=== PATIENT | female | born 1930 | race Caucasian/White ===

== ENCOUNTER → 2017-01-04 | Outpatient (CLI) | payer MEDICARE, BC ==
--- NOTE | 2017-01-04 14:30 | XR ---
EXAMINATION TYPE: XR chest 2V DATE OF EXAM: 01/04/2017 COMPARISON: 05/18/2015 TECHNIQUE: PA and lateral views submitted. HISTORY: Shortness of breath FINDINGS: There is right lower lobe infiltrate with pleural effusion and pleural-based calcification. Left lung clear. Biapical pleural thickening. Atherosclerotic change aorta. No overt failure. Underlying COPD suspected. Curvature of the spine with degenerative disc disease noted. IMPRESSION: 1. Right-sided pleural effusion and consolidation with pleural-based calcification correlate for asbe stosis related disease. There is mild increased blunting of the right costophrenic angle relative to the prior exam. 2. No evidence of overt cardiac failure. 3. COPD.
== END | disposition home or self-care (01) ==
LOC: RADXRMAIN 14:06
PROVIDERS: ATTEND Internal Medicine
DX: J90 Pleural effusion, not elsewhere classified (principal); J44.9 Chronic obstructive pulmonary disease, unspecified; J98.4 Other disorders of lung
CPT/HCPCS: 71020

== ENCOUNTER → 2017-01-20 | Outpatient (CLI) | payer MEDICARE, BC ==
--- NOTE | 2017-01-20 16:14 | CT ---
EXAMINATION TYPE: CT chest wo con DATE OF EXAM: 01/20/2017 COMPARISON: Radiograph 01/04/2017 HISTORY: 86-year-old female with abnormal chest x-ray, Shortness of breath and weight loss. TECHNIQUE: Contiguous axial scanning of the chest without IV contrast. Coronal and sagittal reconstru ctions performed. CT DLP: 118.80 mGycm Automated exposure control for dose reduction was used. FINDINGS: The heart is normal size with trace anterior pericardial fluid/thickening. Extensive coronary vessel calcifications are present in remarkable for coronary artery disease. Mild atherosclerotic calcifications throughout the aorta. Normal caliber of the aorta with convention al arch vessel branching anatomy. Large caliber to the main right and left pulmonary arteries are 2.6 and 2.7 cm, respectively, suggest ing underlying pulmonary artery hypertension. No thoracic lymphadenopathy seen. There is dense calcified plaque along the right hemidiaphragm with a band of atelectasis/scarring at the posterior left base and additional pleural patchy pleural-parenchymal scarring at the right base. Ectasia of the lower descending thoracic aorta are 2.7 cm. No suspicious pulmonary nodule or mass is identified. Moderate-sized hiatal hernia. A number of lesions within the kidneys. These are indeterminate. Some are hypodense. Dominant lesion lateral midpole show soft tissue attenuation and could represent a solid mass or hemorrhagic cyst lupe suring 2.3 cm. At least 4 calcifications in the right kidney which are nonobstructive and 2 on the left. At least moderate stool burden within the visualized colon. Ectasia of the upper abdominal aorta at 2 .6 cm. Bones: No osseous destructive process. IMPRESSION: 1. DENSE CALCIFICATION ALONG THE RIGHT HEMIDIAPHRAGM. THIS COULD BE ON A POST INFLAMMATORY BASIS SUCH IN THE SETTING OF PRIOR EMPYEMA OR HEMOTHORAX. PRIOR ASBESTOS EXPOSURE IS ALSO A CONSIDERATION TH OUGH ADDITIONAL PLEURAL PLAQUES ARE NOT SEEN. CORRELATE WITH PATIENT'S EXPOSURE HISTORY. 2. VOLUME LOSS WITH PATCHY PLEURAL PARENCHYMAL SCARRING AT THE RIGHT GREATER THAN LEFT LUNG BASES. 3. CAD AND PULMONARY ARTERIAL HYPERTENSION. 4. A NUMBER OF RENAL LESIONS WHICH ARE INDETERMINATE. ONE COULD BE A 2.3 CM SOLID MASS OR HEMORRHAGIC CYST. RENAL MRI COULD PROVIDE MORE BETTER CHARACTERIZATION. 5. MODERATE-SIZED HIATAL HERNIA AND BILATERAL NEPHROLITHIASIS.
== END | disposition home or self-care (01) ==
LOC: RADCTMAIN 15:35
PROVIDERS: ATTEND Internal Medicine
DX: J98.4 Other disorders of lung (principal); J91.8 Pleural effusion in other conditions classified elsewhere; I25.10 Atherosclerotic heart disease of native coronary artery without angina pectoris; R63.4 Abnormal weight loss; I27.20 Pulmonary hypertension, unspecified
CPT/HCPCS: 71250

== ENCOUNTER 2017-10-14 11:32 | Emergency (ER) | payer MEDICARE, BC ==
[2017-10-14] MEDS ORDERED: SODIUM CHLORIDE 0.9% 500 ML IV STA (11:39)
--- NOTE | 2017-10-14 11:42 | ED ---
Syncope HPI - General Stated Complaint: near syncope Time Seen by Provider: 10/14/17 11:32 Source: patient, EMS, RN notes reviewed Mode of arrival: EMS - History of Present Illness Initial Comments: This 87-year-old female who was in a service and transferred for a prolonged period of time where was very warm who states she was sitting and almost passed out. She apparently became very weak is noted be hypotensive per EMS with 86/40's blood pressure she did improve somewhat after IV fluids and oxygen. She did later become lethargic did have a sternal rub which woke her up. She now feels much improved she has no headache no focal weakness she does admit she did not eat breakfast this morning but did have a couple coffee. She currently complains of no headache or vision focal weakness fevers chills nausea vomiting sweats or other symptoms. Her Accu-Chek was adequate per EMS. MD Complaint: almost passed out - Related Data Home Medications Medication Instructions Recorded Confirmed Benazepril [Lotensin] 10 mg PO DAILY 08/06/14 10/14/17 Metoprolol Tartrate [Lopressor] 25 mg PO BID 08/06/14 10/14/17 Simvastatin [Zocor] 20 mg PO HS 08/06/14 10/14/17 Ferrous Sulfate [Iron (65 MG 325 mg PO DAILY 03/20/17 10/14/17 Elemental)] Gabapentin [Neurontin] 300 mg PO HS 10/14/17 10/14/17 Previous Rx's Medication Instructions Recorded Nitrofurantoin Monohyd/M-Cryst 100 mg PO Q12HR #14 cap 10/14/17 [Macrobid] Allergies Allergy/AdvReac Type Severity Reaction Status Date / Time No Known Allergies Allergy Verified 10/14/17 12:17 Review of Systems ROS Statement: Those systems with pertinent positive or pertinent negative responses have been documented in the HPI. ROS Other: All systems not noted in ROS Statement are negative. Past Medical History Past Medical History: COPD, Hyperlipidemia, Hypertension Additional Past Medical History / Comment(s): anemia, pulmonary HTN. History of Any Multi-Drug Resistant Organisms: None Reported Past Surgical History: No Surgical Hx Reported Additional Past Surgical History / Comment(s): right eye surgery r/t retina tear. Past Psychological History: No Psychological Hx Reported Smoking Status: Never smoker Past Alcohol Use History: None Reported Past Drug Use History: None Reported - Past Family History Father History Unknown: Yes Additional Family Medical History / Comment(s): patient thinks her father had a heart condition, doesnt know what. Mother Family Medical History: Hypertension Additional Family Medical History / Comment(s): patient thinks her mother may have had HTN. General Exam - General Exam Comments Initial Comments: This is a well developed well-nourished awake alert oriented 3 female General appearance: alert, in no apparent distress Head exam: Present: atraumatic, normocephalic, normal inspection Eye exam: Present: normal appearance, PERRL, EOMI. Absent: scleral icterus, conjunctival injection, periorbital swelling ENT exam: Present: mucous membranes dry Neck exam: Present: normal inspection. Absent: tenderness, meningismus, lymphadenopathy Respiratory exam: Present: normal lung sounds bilaterally. Absent: respiratory distress, wheezes, rales, rhonchi, stridor Cardiovascular Exam: Present: regular rate, normal rhythm, normal heart sounds. Absent: systolic murmur, diastolic murmur, rubs, gallop, clicks GI/Abdominal exam: Present: soft, normal bowel sounds. Absent: distended, tenderness, guarding, rebound, rigid Extremities exam: Present: normal inspection, full ROM, normal capillary refill. Absent: tenderness, pedal edema, joint swelling, calf tenderness Back exam: Present: normal inspection Neurological exam: Present: alert, oriented X3, CN II-XII intact Psychiatric exam: Present: normal affect, normal mood Skin exam: Present: warm, dry, intact, normal color. Absent: rash Course Vital Signs 10/14/17 10/14/17 10/14/17 11:43 11:52 14:02 Temperature 98.2 F Pulse Rate 77 80 Respiratory 16 16 Rate Blood Pressure 150/84 104/58 O2 Sat by Pulse 96 Oximetry EKG Findings - EKG Results: EKG: interpreted by ERMSarai, sinus rhythm (Sinus rhythm rate is 71. Interval 164 QRS 90 QT since QTC 392/425 voltage criteria for LVH no acute ST-T wave changes. ) Medical Decision Making - Medical Decision Making The patient showing much improved at this time I did discuss the findings with her and her family members she does have some evidence of UTI. Patient be placed on antibiotics she'll be discharged she is follow-up with her doctor return when necessary - Lab Data Result diagrams: 10/14/17 12:00 10/14/17 12:00 Lab Results 10/14/17 10/14/17 10/14/17 Range/Units 12:00 12:00 12:00 WBC 9.1 (3.8-10.6) k/uL RBC 2.72 L (3.80-5.40) m/uL Hgb 8.4 L (11.4-16.0) gm/dL Hct 25.9 L (34.0-46.0) % MCV 95.3 (80.0-100.0) fL MCH 31.1 (25.0-35.0) pg MCHC 32.6 (31.0-37.0) g/dL RDW 14.3 (11.5-15.5) % Plt Count 312 (150-450) k/uL Neutrophils % 81 % Lymphocytes % 10 % Monocytes % 6 % Eosinophils % 1 % Basophils % 0 % Neutrophils # 7.3 (1.3-7.7) k/uL Lymphocytes # 0.9 L (1.0-4.8) k/uL Monocytes # 0.6 (0-1.0) k/uL Eosinophils # 0.1 (0-0.7) k/uL Basophils # 0.0 (0-0.2) k/uL Sodium 139 (137-145) mmol/L Potassium 4.4 (3.5-5.1) mmol/L Chloride 110 H (98-107) mmol/L Carbon Dioxide 20 L (22-30) mmol/L Anion Gap 9 mmol/L BUN 38 H (7-17) mg/dL Creatinine 1.80 H (0.52-1.04) mg/dL Est GFR (CKD-EPI)AfAm 28 (>60 ml/min/1.73 sqM) Est GFR (CKD-EPI)NonAf 25 (>60 ml/min/1.73 sqM) Glucose 87 (74-99) mg/dL Calcium 9.1 (8.4-10.2) mg/dL Magnesium 2.3 (1.6-2.3) mg/dL Total Bilirubin 0.3 (0.2-1.3) mg/dL AST 15 (14-36) U/L ALT 24 (9-52) U/L Alkaline Phosphatase 68 (38-126) U/L Total Creatine Kinase 46 (30-135) U/L CK-MB (CK-2) <0.2 (0.0-2.4) ng/mL CK-MB (CK-2) Rel Index Troponin I <0.012 (0.000-0.034) ng/mL Total Protein 5.6 L (6.3-8.2) g/dL Albumin 3.3 L (3.5-5.0) g/dL Urine Color Urine Appearance (Clear) Urine pH (5.0-8.0) Ur Specific Clint (1.001-1.035) Urine Protein (Negative) Urine Glucose (UA) (Negative) Urine Ketones (Negative) Urine Blood (Negative) Urine Nitrite (Negative) Urine Bilirubin (Negative) Urine Urobilinogen (<2.0) mg/dL Ur Leukocyte Esterase (Negative) Urine RBC (0-5) /hpf Urine WBC (0-5) /hpf Ur Squamous Epith Cells (0-4) /hpf Urine Bacteria (None) /hpf Hyaline Casts (0-2) /lpf Urine Mucus (None) /hpf / Range/Units Unknown WBC (3.8-10.6) k/uL RBC (3.80-5.40) m/uL Hgb (11.4-16.0) gm/dL Hct (34.0-46.0) % MCV (80.0-100.0) fL MCH (25.0-35.0) pg MCHC (31.0-37.0) g/dL RDW (11.5-15.5) % Plt Count (150-450) k/uL Neutrophils % % Lymphocytes % % Monocytes % % Eosinophils % % Basophils % % Neutrophils # (1.3-7.7) k/uL Lymphocytes # (1.0-4.8) k/uL Monocytes # (0-1.0) k/uL Eosinophils # (0-0.7) k/uL Basophils # (0-0.2) k/uL Sodium (137-145) mmol/L Potassium (3.5-5.1) mmol/L Chloride (98-107) mmol/L Carbon Dioxide (22-30) mmol/L Anion Gap mmol/L BUN (7-17) mg/dL Creatinine (0.52-1.04) mg/dL Est GFR (CKD-EPI)AfAm (>60 ml/min/1.73 sqM) Est GFR (CKD-EPI)NonAf (>60 ml/min/1.73 sqM) Glucose (74-99) mg/dL Calcium (8.4-10.2) mg/dL Magnesium (1.6-2.3) mg/dL Total Bilirubin (0.2-1.3) mg/dL AST (14-36) U/L ALT (9-52) U/L Alkaline Phosphatase (38-126) U/L Total Creatine Kinase (30-135) U/L CK-MB (CK-2) (0.0-2.4) ng/mL CK-MB (CK-2) Rel Index Troponin I (0.000-0.034) ng/mL Total Protein (6.3-8.2) g/dL Albumin (3.5-5.0) g/dL Urine Color Yellow Urine Appearance Cloudy H (Clear) Urine pH 5.5 (5.0-8.0) Ur Specific Clint 1.011 (1.001-1.035) Urine Protein Negative (Negative) Urine Glucose (UA) Negative (Negative) Urine Ketones Negative (Negative) Urine Blood Negative (Negative) Urine Nitrite Negative (Negative) Urine Bilirubin Negative (Negative) Urine Urobilinogen <2.0 (<2.0) mg/dL Ur Leukocyte Esterase Large H (Negative) Urine RBC 3 (0-5) /hpf Urine WBC 29 H (0-5) /hpf Ur Squamous Epith Cells 17 H (0-4) /hpf Urine Bacteria Occasional H (None) /hpf Hyaline Casts 14 H (0-2) /lpf Urine Mucus Rare H (None) /hpf - Radiology Data Radiology results: report reviewed (Did review the imaging and reports no acute findings.), image reviewed Disposition Clinical Impression: Syncope due to orthostatic hypotension, Dehydration, Urinary tract infection Disposition: HOME SELF-CARE Condition: Good Instructions: Near Syncope (ED), Dehydration (ED), Urinary Tract Infection in Women (ED) Prescriptions: Nitrofurantoin Monohyd/M-Cryst [Macrobid] 100 mg PO Q12HR #14 cap Is patient prescribed a controlled substance at d/c from ED?: No Referrals: Benitez Rodriguez MD [Primary Care Provider] - 1-2 days
[2017-10-14 11:46] VITALS: RESP 16
[2017-10-14 12:12] LABS: Basophils % (A) 0 %; Eosinophils # (A) 0.1 k/uL (0-0.7); Eosinophils % (A) 1 %; HCT 25.9 % (34.0-46.0); HGB 8.4 gm/dL (11.4-16.0); Lymphocytes # (A) 0.9 k/uL (1.0-4.8); Lymphocytes % (A) 10 %; MCH 31.1 pg (25.0-35.0); MCHC 32.6 g/dL (31.0-37.0); MCV 95.3 fL (80.0-100.0); Mean Platelet Volume 7.5; Monocytes # (A) 0.6 k/uL (0-1.0); Monocytes % (A) 6 %; Neutrophils # (A) 7.3 k/uL (1.3-7.7); Neutrophils % (A) 81 %; Platelet Count 312 k/uL (150-450); RBC 2.72 m/uL (3.80-5.40); RDW 14.3 % (11.5-15.5); WBC 9.1 k/uL (3.8-10.6)
[2017-10-14 12:27] LABS: Albumin 3.3 g/dL (3.5-5.0); Calcium 9.1 mg/dL (8.4-10.2); Magnesium 2.3 mg/dL (1.6-2.3); Potassium 4.4 mmol/L (3.5-5.1); Total Bilirubin 0.3 mg/dL (0.2-1.3); Total Protein 5.6 g/dL (6.3-8.2)
[2017-10-14 12:34] LABS: Creatine Kinase 46 U/L (30-135)
--- NOTE | 2017-10-14 12:35 | XR ---
EXAMINATION TYPE: XR chest 2V DATE OF EXAM: 10/14/2017 COMPARISON: 03/20/2017 HISTORY: shortness of breath TECHNIQUE: Frontal and lateral views of the chest are obtained. FINDINGS: Persistent retrocardiac opacity is seen in the prior exam relates to right-sided diaphragm atic eventration in the possible small subpulmonic pleural effusion. This is a chronic finding. No ne w focal consolidation, pleural effusion or pneumothorax. Right-sided hemithorax volume loss is noted from the right hemidiaphragm elevation. Biapical lucency represents underlying COPD. Mild osseous dem ineralization is present. IMPRESSION: Chronic findings with no acute cardiopulmonary process.
[2017-10-14 12:47] LABS: Creatine Kinase MB <0.2 ng/mL (0.0-2.4); Troponin I <0.012 ng/mL (0.000-0.034)
[2017-10-14 14:19] LABS: Appearance,Urine Cloudy (Clear); Bacteria,Urine Occasional /hpf; Bilirubin,Urine Negative (Negative); Blood,Urine Negative (Negative); Color,Urine Yellow; Glucose,Urine (UA) Negative (Negative); Hyaline Casts,Urine 14 /lpf (0-2); Ketones,Urine Negative (Negative); Leukocyte Esterase,Urine Large (Negative); Mucus,Urine Rare /hpf; Nitrite,Urine Negative (Negative); PH, Urine 5.5 (5.0-8.0); Protein,Urine Negative (Negative); RBC,Urine 3 /hpf (0-5); Specific Gravity,Urine 1.011 (1.001-1.035); Squamous Epithelial Cell,Urine 17 /hpf (0-4); Urobilinogen,Urine <2.0 mg/dL (<2.0); WBC,Urine 29 /hpf (0-5)
[2017-10-14 15:31] VITALS: BP 139/65; PULSE 70; TEMP 97.6
[2017-10-14 20:37] LABS: Hemoglobin A1C 4.6 % (4.0-6.0)
== END 2017-10-14 15:32 | disposition home or self-care (01) ==
LOC: EC 11:32
DX: I95.1 Orthostatic hypotension (principal); E86.0 Dehydration; N39.0 Urinary tract infection, site not specified; E78.5 Hyperlipidemia, unspecified; I10 Essential (primary) hypertension; D64.9 Anemia, unspecified; Z79.899 Other long term (current) drug therapy
CPT/HCPCS: 36415; 71046; 80053; 81001; 82550; 82553; 83036; 83735; 84484; 85025; 87086; 96360; 99284

== ENCOUNTER 2017-11-20 12:01 | Emergency (ER) | payer MEDICARE, BC ==
[2017-11-20] MEDS ORDERED: SODIUM CHLORIDE 0.9% 1,000 ML IV STA ×2 (12:20)
[2017-11-20] MEDS ORDERED: ACETAMINOPHEN IV (For NPO) 1,000 MG in EMPTY BAG 1 BAG IVPB STA (12:20)
[2017-11-20] MEDS ORDERED: ceFAZolin IN SWFI 2 GM/20 ML SYRINGE IVP STA (12:20)
[2017-11-20] MEDS ORDERED: DIPH,PERTUS(ACELL)TETVAC-LF 0.5 ML VIAL IM ONE (12:20)
[2017-11-20 12:40] LABS: Basophils % (A) 0 %; Eosinophils # (A) 0.2 k/uL (0-0.7); Eosinophils % (A) 2 %; HCT 25.3 % (34.0-46.0); HGB 8.3 gm/dL (11.4-16.0); Lymphocytes # (A) 0.9 k/uL (1.0-4.8); Lymphocytes % (A) 13 %; MCH 30.4 pg (25.0-35.0); MCV 92.2 fL (80.0-100.0); Mean Platelet Volume 7.5; Monocytes # (A) 0.5 k/uL (0-1.0); Monocytes % (A) 7 %; Neutrophils # (A) 5.7 k/uL (1.3-7.7); Neutrophils % (A) 76 %; Platelet Count 321 k/uL (150-450); RBC 2.74 m/uL (3.80-5.40); RDW 14.4 % (11.5-15.5); WBC 7.5 k/uL (3.8-10.6)
--- NOTE | 2017-11-20 12:42 | ED ---
General Adult HPI - General Chief complaint: Weakness Stated complaint: Weakness Time Seen by Provider: 11/20/17 12:03 Source: patient, RN notes reviewed, old records reviewed Mode of arrival: EMS Limitations: no limitations - History of Present Illness Initial comments: This is an 87-year-old female the ER for evaluation of syncopal event weakness. Patient states he does not feel well. He is appetite likely dehydration. Patient has history of COPD hypertension high cholesterol. Patient believes admission up to syncope earlier today. She is also having weakness and nausea for the last few weeks. Patient has no fevers no chest pain or shortness of breath no headache no abdominal pain. - Related Data Home Medications Medication Instructions Recorded Confirmed Benazepril [Lotensin] 10 mg PO DAILY 08/06/14 11/20/17 Metoprolol Tartrate [Lopressor] 25 mg PO BID 08/06/14 11/20/17 Simvastatin [Zocor] 20 mg PO HS 08/06/14 11/20/17 Ferrous Sulfate [Iron (65 MG 325 mg PO DAILY 03/20/17 11/20/17 Elemental)] Gabapentin [Neurontin] 300 mg PO HS 10/14/17 11/20/17 DULoxetine HCL [Cymbalta] 20 mg PO DAILY 11/20/17 11/20/17 Triamterene/Hydrochlorothiazid 0.5 tab PO DAILY 11/20/17 11/20/17 [Triamterene-Hctz 37.5-25 mg Tb] Allergies Allergy/AdvReac Type Severity Reaction Status Date / Time No Known Allergies Allergy Verified 11/20/17 15:04 Review of Systems ROS Statement: Those systems with pertinent positive or pertinent negative responses have been documented in the HPI. ROS Other: All systems not noted in ROS Statement are negative. Past Medical History Past Medical History: COPD, Hyperlipidemia, Hypertension Additional Past Medical History / Comment(s): anemia, pulmonary HTN. History of Any Multi-Drug Resistant Organisms: None Reported Past Surgical History: No Surgical Hx Reported Additional Past Surgical History / Comment(s): right eye surgery r/t retina tear. Past Psychological History: No Psychological Hx Reported Smoking Status: Never smoker Past Alcohol Use History: None Reported Past Drug Use History: None Reported - Past Family History Father History Unknown: Yes Additional Family Medical History / Comment(s): patient thinks her father had a heart condition, doesnt know what. Mother Family Medical History: Hypertension Additional Family Medical History / Comment(s): patient thinks her mother may have had HTN. General Exam Limitations: no limitations General appearance: alert, in no apparent distress Head exam: Present: atraumatic, normocephalic, normal inspection Eye exam: Present: normal appearance, PERRL, EOMI. Absent: scleral icterus, conjunctival injection, periorbital swelling ENT exam: Present: normal exam, mucous membranes moist Neck exam: Present: normal inspection. Absent: tenderness, meningismus, lymphadenopathy Respiratory exam: Present: normal lung sounds bilaterally. Absent: respiratory distress, wheezes, rales, rhonchi, stridor Cardiovascular Exam: Present: regular rate, normal rhythm, normal heart sounds. Absent: systolic murmur, diastolic murmur, rubs, gallop, clicks GI/Abdominal exam: Present: soft, normal bowel sounds. Absent: distended, tenderness, guarding, rebound, rigid Extremities exam: Present: normal inspection, full ROM, normal capillary refill. Absent: tenderness, pedal edema, joint swelling, calf tenderness Back exam: Present: normal inspection Neurological exam: Present: alert, oriented X3, CN II-XII intact Psychiatric exam: Present: normal affect, normal mood Skin exam: Present: warm, dry, intact, normal color. Absent: rash Course Vital Signs 11/20/17 11/20/17 11/20/17 12:05 12:20 12:35 Temperature 98.1 F Pulse Rate 65 61 62 Respiratory 16 18 18 Rate Blood Pressure 113/65 111/59 127/65 O2 Sat by Pulse 96 100 100 Oximetry 11/20/17 11/20/17 11/20/17 12:50 13:05 13:20 Temperature Pulse Rate 56 L 64 65 Respiratory 16 16 18 Rate Blood Pressure 122/62 122/59 125/63 O2 Sat by Pulse 99 97 99 Oximetry 11/20/17 11/20/17 14:00 15:09 Temperature 97.9 F Pulse Rate 56 L 66 Respiratory 16 16 Rate Blood Pressure 130/65 135/67 O2 Sat by Pulse 99 97 Oximetry - Reevaluation(s) Reevaluation #1: Medical record is reviewed Patient significant improvement after hydration here in the ER EKG Findings - EKG Comments: EKG Findings:: EKG shows sinus rhythm rate of 62, KS 176, QRS 74, QTC 446 Medical Decision Making - Medical Decision Making 87 female the ER for evaluation of syncope likely dehydration related, patient can be discharged home if she is a symptomatically currently and would like to be discharged - Lab Data Result diagrams: 11/20/17 12:20 11/20/17 12:20 Lab Results 11/20/17 11/20/17 11/20/17 Range/Units 12:20 12:20 12:20 WBC 7.5 (3.8-10.6) k/uL RBC 2.74 L (3.80-5.40) m/uL Hgb 8.3 L (11.4-16.0) gm/dL Hct 25.3 L (34.0-46.0) % MCV 92.2 (80.0-100.0) fL MCH 30.4 (25.0-35.0) pg MCHC 33.0 (31.0-37.0) g/dL RDW 14.4 (11.5-15.5) % Plt Count 321 (150-450) k/uL Neutrophils % 76 % Lymphocytes % 13 % Monocytes % 7 % Eosinophils % 2 % Basophils % 0 % Neutrophils # 5.7 (1.3-7.7) k/uL Lymphocytes # 0.9 L (1.0-4.8) k/uL Monocytes # 0.5 (0-1.0) k/uL Eosinophils # 0.2 (0-0.7) k/uL Basophils # 0.0 (0-0.2) k/uL PT (9.0-12.0) sec INR (<1.2) APTT (22.0-30.0) sec Sodium 135 L (137-145) mmol/L Potassium 4.7 (3.5-5.1) mmol/L Chloride 106 (98-107) mmol/L Carbon Dioxide 19 L (22-30) mmol/L Anion Gap 10 mmol/L BUN 26 H (7-17) mg/dL Creatinine 1.50 H (0.52-1.04) mg/dL Est GFR (CKD-EPI)AfAm 35 (>60 ml/min/1.73 sqM) Est GFR (CKD-EPI)NonAf 31 (>60 ml/min/1.73 sqM) Glucose 118 H (74-99) mg/dL Plasma Lactic Acid Tulio (0.7-2.0) mmol/L Calcium 9.3 (8.4-10.2) mg/dL Total Bilirubin 0.5 (0.2-1.3) mg/dL AST 19 (14-36) U/L ALT 26 (9-52) U/L Alkaline Phosphatase 91 (38-126) U/L Total Creatine Kinase 46 (30-135) U/L CK-MB (CK-2) 0.2 (0.0-2.4) ng/mL CK-MB (CK-2) Rel Index 0.4 Troponin I <0.012 (0.000-0.034) ng/mL Total Protein 5.9 L (6.3-8.2) g/dL Albumin 3.3 L (3.5-5.0) g/dL 11/20/17 11/20/17 Range/Units 12:20 12:20 WBC (3.8-10.6) k/uL RBC (3.80-5.40) m/uL Hgb (11.4-16.0) gm/dL Hct (34.0-46.0) % MCV (80.0-100.0) fL MCH (25.0-35.0) pg MCHC (31.0-37.0) g/dL RDW (11.5-15.5) % Plt Count (150-450) k/uL Neutrophils % % Lymphocytes % % Monocytes % % Eosinophils % % Basophils % % Neutrophils # (1.3-7.7) k/uL Lymphocytes # (1.0-4.8) k/uL Monocytes # (0-1.0) k/uL Eosinophils # (0-0.7) k/uL Basophils # (0-0.2) k/uL PT 10.1 (9.0-12.0) sec INR 1.0 (<1.2) APTT 37.0 H (22.0-30.0) sec Sodium (137-145) mmol/L Potassium (3.5-5.1) mmol/L Chloride (98-107) mmol/L Carbon Dioxide (22-30) mmol/L Anion Gap mmol/L BUN (7-17) mg/dL Creatinine (0.52-1.04) mg/dL Est GFR (CKD-EPI)AfAm (>60 ml/min/1.73 sqM) Est GFR (CKD-EPI)NonAf (>60 ml/min/1.73 sqM) Glucose (74-99) mg/dL Plasma Lactic Acid Tulio 1.5 (0.7-2.0) mmol/L Calcium (8.4-10.2) mg/dL Total Bilirubin (0.2-1.3) mg/dL AST (14-36) U/L ALT (9-52) U/L Alkaline Phosphatase (38-126) U/L Total Creatine Kinase (30-135) U/L CK-MB (CK-2) (0.0-2.4) ng/mL CK-MB (CK-2) Rel Index Troponin I (0.000-0.034) ng/mL Total Protein (6.3-8.2) g/dL Albumin (3.5-5.0) g/dL Disposition Clinical Impression: Dehydration, Acute kidney injury, Syncope Disposition: HOME SELF-CARE Condition: Good Instructions: Syncope (ED) Is patient prescribed a controlled substance at d/c from ED?: No Referrals: Benitez Rodriguez MD [Primary Care Provider] - 1-2 days
[2017-11-20 12:57] LABS: Prothrombin Time 10.1 sec (9.0-12.0)
[2017-11-20 13:00] LABS: Creatine Kinase 46 U/L (30-135)
[2017-11-20 13:01] LABS: Albumin 3.3 g/dL (3.5-5.0); Calcium 9.3 mg/dL (8.4-10.2); Potassium 4.7 mmol/L (3.5-5.1); Total Bilirubin 0.5 mg/dL (0.2-1.3); Total Protein 5.9 g/dL (6.3-8.2)
[2017-11-20 13:13] LABS: Creatine Kinase MB 0.2 ng/mL (0.0-2.4); Troponin I <0.012 ng/mL (0.000-0.034)
[2017-11-20 15:09] VITALS: RESP 16
[2017-11-20 15:12] VITALS: BP 135/67; PULSE 66; TEMP 97.9
== END 2017-11-20 15:05 | disposition home or self-care (01) ==
LOC: EC 12:01
DX: N17.9 Acute kidney failure, unspecified (principal); E86.0 Dehydration; R55 Syncope and collapse; E78.5 Hyperlipidemia, unspecified; I10 Essential (primary) hypertension; Z79.899 Other long term (current) drug therapy
CPT/HCPCS: 36415; 80053; 82550; 82553; 83605; 84484; 85025; 85610; 85730; 93005; 96360; 99285

== ENCOUNTER 2018-04-28 09:02 | Emergency (ER) | payer MEDICARE, BC ==
[2018-04-28 09:09] VITALS: PULSE 72; TEMP 97.8
--- NOTE | 2018-04-28 09:44 | ED ---
General Adult HPI - General Chief complaint: Weakness Stated complaint: abd mass Source: EMS Mode of arrival: EMS Limitations: no limitations - Related Data Home Medications Medication Instructions Recorded Confirmed Metoprolol Tartrate [Lopressor] 25 mg PO BID 08/06/14 04/28/18 Simvastatin [Zocor] 20 mg PO HS 08/06/14 04/28/18 Gabapentin [Neurontin] 300 mg PO HS 10/14/17 04/28/18 DULoxetine HCL [Cymbalta] 20 mg PO DAILY 11/20/17 04/28/18 Triamterene/Hydrochlorothiazid 0.5 tab PO DAILY 11/20/17 04/28/18 [Triamterene-Hctz 37.5-25 mg Tb] HYDROcodone/APAP 7.5-325MG [Marne 1 tab PO TID PRN 04/28/18 04/28/18 7.5-325] Megestrol [Megace] 400 mg PO BID 04/28/18 04/28/18 Allergies Allergy/AdvReac Type Severity Reaction Status Date / Time No Known Allergies Allergy Verified 04/28/18 10:01 Review of Systems ROS Statement: Those systems with pertinent positive or pertinent negative responses have been documented in the HPI. ROS Other: All systems not noted in ROS Statement are negative. Past Medical History Past Medical History: COPD, Hyperlipidemia, Hypertension Additional Past Medical History / Comment(s): anemia, pulmonary HTN. History of Any Multi-Drug Resistant Organisms: None Reported Past Surgical History: No Surgical Hx Reported Additional Past Surgical History / Comment(s): right eye surgery r/t retina tear. Past Psychological History: No Psychological Hx Reported Smoking Status: Never smoker Past Alcohol Use History: None Reported Past Drug Use History: None Reported - Past Family History Father History Unknown: Yes Additional Family Medical History / Comment(s): patient thinks her father had a heart condition, doesnt know what. Mother Family Medical History: Hypertension Additional Family Medical History / Comment(s): patient thinks her mother may have had HTN. General Exam Limitations: no limitations Course Vital Signs 04/28/18 04/28/18 04/28/18 09:04 09:08 09:30 Temperature 97.8 F Pulse Rate 72 74 71 Respiratory 16 18 12 Rate Blood Pressure 120/61 120/61 O2 Sat by Pulse 96 94 L 94 L Oximetry 04/28/18 04/28/18 10:00 10:30 Temperature Pulse Rate 73 72 Respiratory 16 18 Rate Blood Pressure 120/61 120/63 O2 Sat by Pulse 95 95 Oximetry Medical Decision Making - Medical Decision Making Dictation was produced using [employer] dictation software. please excuse any grammatical, word or spelling errors. Chief Complaint: 87-year-old female past medical history of pulmonary fibrosis presents with generalized weakness and episode of right lower quadrant mass History of Present Illness: She was watching TV last night. She reports that she felt a mass in her right lower quadrant. She states that he was out for several minutes however resolved. Patient denies ever having had symptoms like this before. During that time she had an episode of incontinence and weakness. Patient was brought here by daughter. Daughter was compared to her last night however she decided to wait until morning. Patient otherwise feels well at this time. She denies any pain to that area The ROS documented in this emergency department record has been reviewed and confirmed by me. Those systems with pertinent positive or negative responses have been documented in the HPI. All other systems are other negative and/or noncontributory. PHYSICAL EXAM: General Impression: Alert and oriented x3, not in acute distress HEENT: Normocephalic atraumatic, extra-ocular movements intact, pupils equal and reactive to light bilaterally, mucous membranes moist. Cardiovascular: Heart regular rate and rhythm, S1&S2 audible, no murmurs, rubs or gallops Chest: Lungs clear to auscultation bilaterally, no rhonchi, no wheeze, no rales Abdomen: Bowel sounds present, abdomen soft, mild tenderness to palpation at the right lower quadrant, non-distended, no organomegaly Musculoskeletal: Pulses present and equal in all extremities, no peripheral edema Motor: Power 5/5 bilaterally, no focal deficits noted Neurological: CN II-XII grossly intact, no focal motor or sensory deficits noted Skin: Intact with no visualized rashes Psych: Normal affect and mood ED course: 87-year-old female presents with episode of intermittent masses the right lower quadrant vital signs upon arrival are within acceptable limits.Laboratory evaluation obtained. CBC, metabolic panel unremarkable. CT abdomen and pelvis without contrast was obtained showing a liver cysts, kidney cysts and Moderate Fecal Retention, Density in the Left Lung Base, Nonobstructing Punctate Renal Stones. It Appears That Patient Is Symptomatic There Is a Retained Ball of Stool with Surrounding Gas. Patient advised to take MiraLAX every night for 3 days. Told to follow with primary care physician for outpatient management of constipation. EKG interpretation: Ventricular rate 69, normal sinus rhythm, MT interval 170, QS 80, QTc 428. No MT prolongation, no QTC prolongation, no ST or T-wave changes noted. Overall, this EKG is unremarkable - Lab Data Result diagrams: 04/28/18 09:10 04/28/18 09:10 Lab Results 04/28/18 04/28/18 Range/Units 09:10 09:10 WBC 9.5 (3.8-10.6) k/uL RBC 2.87 L (3.80-5.40) m/uL Hgb 8.1 L (11.4-16.0) gm/dL Hct 26.1 L (34.0-46.0) % MCV 91.1 (80.0-100.0) fL MCH 28.4 (25.0-35.0) pg MCHC 31.2 (31.0-37.0) g/dL RDW 14.9 (11.5-15.5) % Plt Count 363 (150-450) k/uL Neutrophils % 87 % Lymphocytes % 7 % Monocytes % 3 % Eosinophils % 2 % Basophils % 0 % Neutrophils # 8.3 H (1.3-7.7) k/uL Lymphocytes # 0.6 L (1.0-4.8) k/uL Monocytes # 0.3 (0-1.0) k/uL Eosinophils # 0.2 (0-0.7) k/uL Basophils # 0.0 (0-0.2) k/uL Hypochromasia Slight Sodium 138 (137-145) mmol/L Potassium 4.1 (3.5-5.1) mmol/L Chloride 110 H (98-107) mmol/L Carbon Dioxide 21 L (22-30) mmol/L Anion Gap 7 mmol/L BUN 23 H (7-17) mg/dL Creatinine 1.22 H (0.52-1.04) mg/dL Est GFR (CKD-EPI)AfAm 45 (>60 ml/min/1.73 sqM) Est GFR (CKD-EPI)NonAf 39 (>60 ml/min/1.73 sqM) Glucose 127 H (74-99) mg/dL Calcium 9.3 (8.4-10.2) mg/dL Magnesium 1.9 (1.6-2.3) mg/dL Total Bilirubin 0.5 (0.2-1.3) mg/dL AST 31 (14-36) U/L ALT 19 (9-52) U/L Alkaline Phosphatase 80 (38-126) U/L Total Protein 5.6 L (6.3-8.2) g/dL Albumin 3.0 L (3.5-5.0) g/dL Lipase 141 (23-300) U/L Disposition Clinical Impression: Abdominal pain Disposition: HOME SELF-CARE Condition: Good Instructions (If sedation given, give patient instructions): Constipation (DC) Is patient prescribed a controlled substance at d/c from ED?: No Referrals: Benitez Rodriguez MD [Primary Care Provider] - 1-2 days Time of Disposition: 11:39
[2018-04-28 09:58] LABS: Basophils % (A) 0 %; Eosinophils # (A) 0.2 k/uL (0-0.7); Eosinophils % (A) 2 %; HCT 26.1 % (34.0-46.0); HGB 8.1 gm/dL (11.4-16.0); Hypochromasia Slight; Lymphocytes # (A) 0.6 k/uL (1.0-4.8); Lymphocytes % (A) 7 %; MCH 28.4 pg (25.0-35.0); MCHC 31.2 g/dL (31.0-37.0); MCV 91.1 fL (80.0-100.0); Mean Platelet Volume 6.8; Monocytes # (A) 0.3 k/uL (0-1.0); Monocytes % (A) 3 %; Neutrophils # (A) 8.3 k/uL (1.3-7.7); Neutrophils % (A) 87 %; Platelet Count 363 k/uL (150-450); RBC 2.87 m/uL (3.80-5.40); RDW 14.9 % (11.5-15.5); WBC 9.5 k/uL (3.8-10.6)
[2018-04-28 10:41] LABS: Calcium 9.3 mg/dL (8.4-10.2); Magnesium 1.9 mg/dL (1.6-2.3); Total Bilirubin 0.5 mg/dL (0.2-1.3); Total Protein 5.6 g/dL (6.3-8.2)
[2018-04-28 10:44] LABS: Potassium 4.1 mmol/L (3.5-5.1)
[2018-04-28 10:46] VITALS: RESP 18
--- NOTE | 2018-04-28 11:29 | CT ---
EXAMINATION TYPE: CT abdomen pelvis wo con DATE OF EXAM: 04/28/2018 COMPARISON: None INDICATION: Pain, Abdominal mass DLP: 308.6 mGycm, Automated exposure control for dose reduction was used. CONTRAST: 0 mL of Isovue 300. Study performed without Oral Contrast TECHNIQUE: Axial images were obtained from above the diaphragm to the pubic rami in the axial plane a t 5 mm thick sections. Reconstructed images are reviewed on the computer in the coronal plane. FINDINGS: Limited CT sections are obtained the lung bases. There is some mild compressive atelectasis at the r ight lung base. Some atelectasis or infiltrate is present posterior medial left lung base. Underlying mass is not entirely excluded. Follow-up is recommended. There is moderate coronary artery calcifica tion present. Calcifications along the right diaphragm. CT ABDOMEN: Liver: There is a 1.2 cm cyst measuring 9 Hounsfield units in the superior anterior right lobe liver. Liver otherwise appears unremarkable. Spleen: Normal Pancreas: Normal Adrenal glands: The adrenal glands are normal. Gallbladder: Normal Kidneys: There is a 2.9 cm slightly hyperdense mass extending from the lateral mid left kidney. There is a 3.2 cm iso to slightly hyperdense area on the mid left posterior kidney. This has some heteroge neity with slightly hypodense eccentric area. Neoplasm should be considered at these locations. Addit ional workup is recommended. There are additional small exophytic slightly hyperdense areas extending from the inferior pole right kidney. Inferior pole nonobstructing renal stones are present measuring 0.3 and 0.1 cm in size at the inferi or pole. Additional mid pole punctate nonobstructing renal stones are present on the right. There is a 0.1 cm nonobstructing renal stone in the mid right kidney. Couple of punctate nonobstructing renal stones are present superior pole right kidney. There is a punctate nonobstructing renal stone at the superior pole left kidney measuring 0.1 cm. No hydronephrosis is present. Aorta: Vascular calcification is within the aorta. Mild fusiform prominence is in the mid abdominal aorta with an AP diameter of 2.1 cm. Inferior vena cava: Normal. CT PELVIS: The cecum is distended. Fecal debris is in the ascending colon. Extensive hepatic flexure. Some subtl e inflammatory changes in the paracolic gutter posterior to the cecum. Fecal debris is within the shlomo cending colon. Small bowel loops appear nondilated. Fecal debris extensive level the rectum. Study is performed without oral contrast limiting bowel evaluation. Appendix: The appendix is not clearly identified Urinary bladder: Normal. Genitourinary structures: Uterus appears unremarkable. Adnexal regions are clear Osseous structures: No suspicious lytic or sclerotic lesions. Scoliosis within the lumbar spine. Mild degenerative changes are at the bilateral hips IMPRESSIONS: 1. There are 2 slightly hyperdense areas within the left kidney. Neoplasm is not excluded. Additiona l workup is recommended. Consider ultrasound for correlation. Intravenous Contrast CT may be needed i f not contraindicated by renal function. MRI may be an alternative. 2. Moderate fecal retention. 3. Some increased density within the posterior medial left lung base can be related atelectasis. Unde rlying mass is not excluded. This should be followed. 4. Nonobstructing bilateral punctate renal stones.
[2018-04-28 11:47] VITALS: BP 136/72
== END 2018-04-28 12:07 | disposition home or self-care (01) ==
LOC: EC 09:02
DX: R10.31 Right lower quadrant pain (principal); N20.0 Calculus of kidney; N28.1 Cyst of kidney, acquired; K76.89 Other specified diseases of liver; K59.00 Constipation, unspecified; R32 Unspecified urinary incontinence; E78.5 Hyperlipidemia, unspecified; I10 Essential (primary) hypertension; Z79.899 Other long term (current) drug therapy
CPT/HCPCS: 36415; 74176; 80053; 83690; 83735; 85025; 93005; 99285